=== PATIENT | male | born 1955 | race Caucasian/White ===

== ENCOUNTER → 2022-02-03 | Outpatient (CLI) | payer OTHER | LOC: HEART 5 10:41 | DX: R59.0 Localized enlarged lymph nodes (principal) | CPT/HCPCS: 94060; 94729 ==

== ENCOUNTER → 2022-03-10 | Outpatient (CLI) | payer OTHER | LOC: CT 07:54 | DX: R59.0 Localized enlarged lymph nodes (principal) | CPT/HCPCS: 76942 ==

== ENCOUNTER → 2022-06-04 | Outpatient (CLI) | payer OTHER | LOC: KOH-I 12:53 | DX: J44.9 Chronic obstructive pulmonary disease, unspecified (principal); J84.9 Interstitial pulmonary disease, unspecified; J84.10 Pulmonary fibrosis, unspecified | CPT/HCPCS: 71250 ==

== ENCOUNTER → 2022-06-22 | Outpatient (CLI) | payer OTHER ==
[~2022-06-22] MED LIST: ALLOPURINOL300 MG PO; ARAVA 20 MG TAB20 MG PO; ASPIRIN EC81 MG PO; BREZTRI AEROS10.7 GM INH; BYSTOLIC5 MG PO; D3-5000125 MCG PO; FERROUS GLUCON324 M1 PO; IBU800 MG PO; JANUVIA100 MG PO; LANTUS SOL100 UNIT/1 SQ; LASIX 40 MG TAB40 MG PO; LIPITOR TAB 1010 MG PO; LISINOPRIL40 MG PO; NIFEDIPINE ER60 M1 PO; POTASSIUM CHLO10 MEQ PO; PROAIR HFA8.5 GM INH; VITAMIN C PO; [UNRECOGNIZED DRUG - MIXTURE] PO
[2022-06-22 11:11] LABS: HEMOGLOBIN 12.5 gm/dl (14.0-17.5); RED BLOOD COUNT 4.45 M/UL (4.20-5.50); WHITE BLOOD COUNT 9.3 K/UL (4.5-11.0)
== END ==
LOC: OPSV2 10:00
PROVIDERS: Anesthesiology
DX: Z01.818 Encounter for other preprocedural examination (principal); R91.8 Other nonspecific abnormal finding of lung field; I10 Essential (primary) hypertension; E11.9 Type 2 diabetes mellitus without complications; J44.9 Chronic obstructive pulmonary disease, unspecified; M19.90 Unspecified osteoarthritis, unspecified site; D64.9 Anemia, unspecified
CPT/HCPCS: 36415; 80048; 85027; 93005

== ENCOUNTER → 2022-06-23 | Day surgery (SDC) | payer OTHER ==
[2022-06-23 17:23] LABS: BODY FLUID SOURCE BRONCH RIGHT LUNG
== END | disposition home or self-care (01) ==
LOC: OR 11:33 → EDSTATUS 13:30 → OR 13:30
PROVIDERS: Internal Medicine Pulmonary Disease
DX: R59.0 Localized enlarged lymph nodes (principal); D64.9 Anemia, unspecified; M06.9 Rheumatoid arthritis, unspecified; J44.9 Chronic obstructive pulmonary disease, unspecified; I10 Essential (primary) hypertension; E78.00 Pure hypercholesterolemia, unspecified; E11.9 Type 2 diabetes mellitus without complications; J84.9 Interstitial pulmonary disease, unspecified; Z86.16 Personal history of COVID-19; Z79.82 Long term (current) use of aspirin
CPT/HCPCS: 82962; 87015; 87116; 87205; 87206; 87252; 89051; J1100; J2001; J2405; J2704; J3010